=== PATIENT | male | born 1980 | race Caucasian/White ===

== ENCOUNTER 2023-06-24 01:23 | Emergency (ER) | payer BC ==
[~2023-06-24] VITALS: Ht 167.6 cm; Wt 70.3 kg
[2023-06-24] MEDS ORDERED: ESCI20TA PO (01:53)
[2023-06-24] MEDS ORDERED: GABA-532 PO (01:53)
[2023-06-24] MEDS ORDERED: TRAZ-182 PO (01:53)
[2023-06-24] MEDS ORDERED: LORAZEPAM 1 MG TABLET ONE (01:59)
[2023-06-24] MEDS ORDERED: LORAZEPAM 0.5 MG TABLET PO ONE (02:00)
[2023-06-24 02:47] LABS: CALCIUM 8.7 mg/dL (8.5-10.1); POTASSIUM 3.1 mmol/L (3.5-5.1)
[2023-06-24 02:54] LABS: BASOPHILS % (AUTO) 0.9 % (0.0-2.0); DIFFERENTIAL COMMENT 1; EOSINOPHILS # (AUTO) 0.1 K/uL (0.0-0.7); EOSINOPHILS % (AUTO) 1.7 % (0.0-7.0); HEMATOCRIT 36.1 % (36.7-47.1); HEMOGLOBIN 12.7 g/dL (12.5-16.3); LYMPHOCYTES # (AUTO) 1.3 K/uL (0.8-4.8); LYMPHOCYTES % (AUTO) 26.3 % (20.5-51.5); MEAN CORPUSCULAR HEMOGLOBIN 32.3 uug (23.8-33.4); MEAN CORPUSCULAR HGB CONC 35 g/dL (32.5-36.3); MEAN CORPUSCULAR VOLUME 91.8 fL (73.0-96.2); MONOCYTES # (AUTO) 0.5 K/uL (0.1-1.30); NEUTROPHILS # (AUTO) 3.1 K/uL (1.8-8.9); NEUTROPHILS % (AUTO) 61.1 % (38.5-71.5); PLATELET COUNT (AUTO) 314 K/uL (152-348); RED BLOOD CELL COUNT(AUTO) 3.93 MIL/uL (4.06-5.63); RED CELL DISTRIBUTION WIDTH 13.1 % (12.1-16.2); WHITE BLOOD COUNT (AUTO) 5.1 K/uL (3.6-10.2)
[2023-06-24] MEDS ORDERED: POTASSIUM CHLORIDE 20 MEQ TAB.PRT.SR ONE (02:59)
[2023-06-24 03:00] LABS: BILIRUBIN,TOTAL 1.4 mg/dL (0.2-1.0); TOTAL PROTEIN, SERUM 6.9 g/dL (6.4-8.2)
[2023-06-24] MEDS ORDERED: POTASSIUM CHLORIDE 20 MEQ TAB.PRT.SR PO ONE (03:00)
[2023-06-24 06:06] VITALS: BP 36/78; O2SAT 96
== END 2023-06-24 06:07 | disposition home or self-care (01) ==
LOC: ER 01:33
DX: F41.9 Anxiety disorder, unspecified (principal); E87.6 Hypokalemia; R00.2 Palpitations; F15.10 Other stimulant abuse, uncomplicated; F32.A Depression, unspecified; Z79.899 Other long term (current) drug therapy; Z88.5 Allergy status to narcotic agent; Z88.1 Allergy status to other antibiotic agents
CPT/HCPCS: 36415; 84484; 85025; 93005; A4606; A4663